=== PATIENT | male | born 1960 | race Two or more races ===

== ENCOUNTER 2017-01-10 13:26 | Emergency (ER) | payer MEDICARE, OTHER ==
[2017-01-10 14:32] LABS: BASOPHILS % 0.7 (0.0-1.5); EOSINOPHILS % 15.9 % (0.0-6.8); MONOCYTES % 3.8 % (0.0-11.0); NEUTROPHILS # 5.2 # k/uL (1.4-7.7)
[2017-01-10 14:48] LABS: eGFR (African) > 60; eGFR (Non-African) > 60
--- NOTE | 2017-01-10 16:17 | ED Physician Documentation ---
Chest Pain - HISTORIAN Historian: patient - HPI Chief Complaint: Chest Pain Additional Information: CHEST PAIN PROD COUGH PREV CORONARY NARROWING ON CATH. PT THINKS CP MAY BE DUE TO PROD COUGH Onset: days ago (2) Timing: gradual onset Duration: constant, waxing, waning Last known Well Date: 01/08/17 Last Known Well Time: 08:00 Severity: mild, moderate Quality: pressure, aching, sharp Chest Pain Radiation: no radiation Chest Pain Signs/Symptoms: dyspnea (70 PLUS PACK YRS CIGS). denies: nausea, vomiting, diaphoresis, cool extremities, dizziness Worsened By: deep breaths, exertion - ROS CONST: no problems GI/: none EYES/ENT: none (HAS DETACHED RETINA RT) SKIN/ENDO: none NEURO/PSYCH: none Comment: also c/o trauma rt hand and tick on leg - PAST HX IA risk factors: hypertension, hyperlipidemia, cardiac disease, other ([employer]- NARROWING SOME YRS AGO-NOT ENOUGH FOR SURG. NEUROPATHY HTN COPD ASTHMA NEUROPATHY ) DVT/PE Risk Factors: other Neuro deficit: CVA Lung disease: asthma, COPD Surgeries/Procedures: other (HERNIA) Allergies/Adverse Reactions: Allergies Allergy/AdvReac Type Severity Reaction Status Date / Time codeine Allergy Verified 01/10/17 14:22 Home Medications: Ambulatory Orders Medication Instructions Recorded Aspirin [Janet] 325 mg PO QDAY 01/10/17 Gabapentin [Neurontin] 600 mg PO 01/10/17 - SOCIAL HX Smoking History: greater than 1 pack/day (EST APPROX 70 PACK YRS) Alcohol Use: heavy (IN PAST) Drug Use: other (IN PAST) - FAMILY HX Family HX: none - VITAL SIGNS Vital Signs: Vital Signs Temp Pulse Resp BP Pulse Ox 167/76 01/29/16 09:31 - REVIEWED ASSESSMENTS Nursing Assessment Reviewed: Yes Vitals Reviewed: Yes ED Results Lab/Radiology - Radiology Radiology Impressions: cxr=wnl hand old boxer fracture - Orders Orders: ED Orders Category Date Time Status Continuous EKG monitoring Q30M Care 01/10/17 14:22 Ordered Continuous Pulse Oximetry Q30M Care 01/10/17 14:[address] IV Lock 1T Care 01/10/17 14:23 Ordered CHEST P.A.&LAT 2 VIEWS [RAD] Stat Exams 01/10/17 Ordered CBC/PLATELET/DIFF Routine Lab 01/10/17 14:22 Ordered CMP Routine Lab 01/10/17 14:22 Ordered CREATINE KINASE Routine Lab 01/10/17 14:22 Ordered TROPONIN I (cTnI) Stat Lab 01/10/17 14:22 Ordered Oxygen Daily Oxygen 01/10/17 14:30 Ordered EKG WITH COMPARISON Stat Ther 01/10/17 14:22 Ordered Chest Pain Physical Exam - EXAM General Appearance: mild distress. No: anxious Neck: nml inspection, no carotid bruit Respiratory: no resp. distress, rhonchi (NORA EXPIRATORY). No: nml breath sounds CVS: reg. rate & rhythm, no murmur Abdomen: soft, non-tender Skin: warm/dry, normal color. No: cyanosis, diaphoresis, jaundice Extremities: non-tender, normal range of motion, no edema Neuro: oriented X3, cognition normal Discharge Clincal Impression: Atypical chest pain, Hand injury, TICK RIGHT LEG Referrals: Primary Doctor,No [Primary Care Provider] - 2 Days Home Medications: Ambulatory Orders Aspirin [Janet] 325 mg PO QDAY 01/10/17 Gabapentin [Neurontin] 600 mg PO 01/10/17 Comments: rem tick disc lab home f/u soon pcp Condition: Good Disposition: 01 HOME, SELF-CARE Decision to Admit: NO Decision Time: 16:17
[2017-01-10 16:29] VITALS: BP 107/69
--- NOTE | 2017-01-10 20:44 | Diagnostic Imaging Report ---
YANDEL BURCH [facility] [address] [facility].[address] [id number] Report Submission Date: Jan 10, 2017 3:37:35 PM CDT Patient Study Name: MAGDIEL BREWER Date: Jan 10, 2017 2:44:55 PM CDT Modality Type: CR Gender: M Description: CHEST : 62 Institution: [facility] Physician: YANDEL BURCH Chest AP single view Clinical history: Chest pain and productive cough Normal heart shadow and mediastinum. No acute infiltrates or pleural effusion. Normal bony thorax. Impression: No active pulmonary pathology Electronically signed on Jan 10, 2017 3:37:35 PM CDT by: Jericho STODDARD
--- NOTE | 2017-01-10 20:45 | Diagnostic Imaging Report ---
YANDEL BURCH [facility] [address] [facility].[address] [address] Report Submission Date: Jan 10, 2017 3:30:48 PM CDT Patient Study Name: MAGDIEL BREWER Date: Jan 10, 2017 2:56:40 PM CDT Modality Type: CR Gender: M Description: UPPER EXTREMITY : 62 Institution: [facility] Physician: YANDEL BURCH Right hand 3 views Clinical history: Pain There is an old healed boxer fracture of the right 5th metacarpal. 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 No acute fractures or periosteal reaction. No significant soft tissue swelling . 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 Electronically signed on Jan 10, 2017 3:30:48 PM CDT by: Jericho STODDARD
== END 2017-01-10 16:20 | disposition home or self-care (01) ==
LOC: ED 13:26
DX: R07.89 Other chest pain (principal); Z87.81 Personal history of (healed) traumatic fracture
CPT/HCPCS: 71010; 73130; 80053; 82550; 84484; 85025; 99283; S1016